=== PATIENT | female | born 2005 | race Caucasian/White ===

== ENCOUNTER 2023-11-10 21:14 | Emergency (ER) | payer OTHER, SELFPAY ==
[2023-11-10 21:16] VITALS: BP 106/69; PULSE 130; RESP 20; TEMP 36.9; O2SAT 96
--- NOTE | 2023-11-10 21:55 | ED.URI ---
HPI - URI/Sore Throat General Chief Complaint: Upper Respiratory Infection Stated Complaint: fever, cough Time Seen by Provider: 11/10/23 21:46 Source: patient Mode of arrival: ambulatory Limitations: no limitations History of Present Illness HPI Narrative: This is a 18 year old female that presents to the ER for cold symptoms. Ongoing since last night. Reports cough, congestion, myalgias and fevers. Has had some vomiting with coughing episodes. Denies shortness of breath. Related Data Allergies Allergy/AdvReac Type Severity Reaction Status Date / Time No Known Allergies Allergy Verified 11/10/23 21:20 Review of Systems Review of Systems: CONSTITUTIONAL: Reports fever ENT: Reports congestion. Denies sore throat RESPIRATORY: Reports cough. Denies dyspnea. GASTROINTESTINAL: Reports vomiting All systems reviewed & are unremarkable except as noted in HPI and below PMFSH Past Medical History Medical History (Updated 11/10/23 @ 22:07 by Roberta Ordonez PA-C) No active medical problems Social History Social History (Updated 11/10/23 @ 21:58 by Roberta Ordonez PA-C) Substance use: never Exam Narrative: GENERAL: Well-appearing, well-nourished, and in no acute distress. HEAD: Normocephalic, atraumatic. EYES: EOMI. ENT: Nares clear, no rhinorrhea or epistaxis. Mucous membranes moist. Oropharynx without tonsillar hypertrophy exudate or other lesions. Bilateral TMs pearly antunez non-bulging NECK: Supple. No adenopathy or masses. CHEST: Clear to auscultation. No respiratory distress. No wheezes rales or rhonchi HEART: Regular rate and rhythm. No murmur heard. Normal peripheral pulses. EXTREMITIES: Normal range of motion. No edema. SKIN: Warm, dry, no rash. NEURO: No focal deficits. Alert and oriented x3. PSYCH: Normal mood and affect Course Course Emergency Course: Patient and family updated on workup and agree with plan of care Vital Signs Vital signs: Vital Signs Temperature 98.4 F 11/10/23 21:16 Pulse Rate 130 H 11/10/23 21:16 Respiratory Rate 20 11/10/23 21:16 Blood Pressure 106/69 11/10/23 21:16 Pulse Oximetry 96 11/10/23 21:16 Oxygen Delivery Room Air 04/04/24 21:16 Temperature 98.4 F 11/10/23 21:16 Pulse Rate 130 H 11/10/23 21:16 Respiratory Rate 20 11/10/23 21:16 Blood Pressure 106/69 11/10/23 21:16 Pulse Oximetry 96 11/10/23 21:16 Oxygen Delivery Room Air 11/10/23 22:04 MDM - URI/Sore Throat MDM Narrative Medical decision making narrative: Patient presents to the emergency department for fevers, cough, myalgias, congestion. Ongoing since yesterday. Was febrile and tachycardic upon arrival. Hydrated and given antipyretic with relief. Patient is positive for influenza B. Will be started on Tamiflu. She is instructed on other continued symptomatic care a viral infection. She is to follow up with her primary provider. She was given warnings to return to the ER Differential Diagnosis Differential diagnosis: Likely upper respiratory infection, viral infection, bronchitis, influenza and other (COVID, RSV) Lab Data Attestation: I reviewed the patient's lab results. Labs: Lab Results 11/10/23 Range/Units 21:22 Influenza A (RT-PCR) Negative (Negative) Influenza B (RT-PCR) Positive A (Negative) RSV (RT-PCR) Negative (Negative) SARS-CoV-2 RNA (RT-PCR) Negative (Negative) Critical Care Time Critical Care Time Critical Care Time: No Discharge Plan Discharge Clinical Impression: Influenza B Patient Disposition: Home, Self-Care Condition: Improved Instructions: Influenza (ED) Additional Instructions: Return to the emergency department for worsening symptoms, or any other concerns Remain well-hydrated, get plenty of rest. Take Tylenol or Motrin [id number] for pain as needed. Flonase for nasal congestion. Zyrtec for runny nose. Lozenges or Chloraseptic spray for sore throat. Take Tamiflu as prescribe
[2023-11-10] MEDS: SODIUM CHLORIDE 0.9% IV 1,000 ML 999 ML IV CONT (22:04)
[2023-11-10 22:05] LABS: Influenza A QL RT-PCR Negative (Negative); Influenza B QL RT-PCR Positive (Negative); RSV RNA, RT-PCR Negative (Negative); SARS-CoV-2 RNA PCR Negative (Negative)
[2023-11-10] MEDS: ACETAMINOPHEN 500 MG TABLET 1000 MG PO (22:05)
[2023-11-10] MEDS: ONDANSETRON INJ 4 MG/2 ML VIAL IV PUSH (22:05)
--- NOTE | 2023-11-10 22:10 | PC.NURSE ---
PATIENT UNABLE TO SWALLOW PILLS AND WAS UNABLE TO GET THEM DOWN. ORDER WAS CHANGED TO LIQUID DOSE OF TYLENOL
[2023-11-10] MEDS: ACETAMINOPHEN ELIXIR 325 MG/10.15 ML UDC 650 MG PO (22:12)
[2023-11-10 22:58] VITALS: PULSE 97; TEMP 37.7
== END 2023-11-10 23:10 | disposition home or self-care (01) ==
LOC: ANHED 22:24
PROVIDERS: Emergency Medicine; Emergency Provider Physician Assistant
DX: J10.1 Influenza due to other identified influenza virus with other respiratory manifestations (principal); Z20.822 Contact with and (suspected) exposure to COVID-19
CPT/HCPCS: 87637; 96374; 99284; A9270; J2405; J7030